=== PATIENT | male | born 1965 | race Caucasian/White ===

== ENCOUNTER 2019-05-15 09:32 | Inpatient (IN) | payer OTHER ==
[2019-05-15 10:16] VITALS: BMI 23.6
--- NOTE | 2019-05-15 11:02 | HP ---
CIWA Score Nausea/Vomitin Muscle Tremors: 2 Anxiety: 2 Agitation: 2 Paroxysmal Sweats: 2 Orientation: 0-Oriented Tacttile Disturbances: 2-Mild Itch/Numbness/Burn Auditory Disturbances: 1-Very Mild Visual Disturbances: 1-Very Mild Sensitivity Headache: 2-Mild CIWA-Ar Total Score: 16 - Admission Criteria OASAS Guidelines: Admission for Medically Managed Detox: Requires at least one of the followin. CIWA greater than 12 2. Seizures within the past 24 hours 3. Delirium tremens within the past 24 hours 4. Hallucinations within the past 24 hours 5. Acute intervention needed for co occurring medical disorder 6. Acute intervention needed for co occurring psychiatric disorder 7. Severe withdrawal that cannot be handled at a lower level of care (continued vomiting, continued diarrhea, abnormal vital signs) requiring intravenous medication and/or fluids 8. Patient presents the following: CIWA greater than 12 Admission Criteria Met: Admission criteria met Admission ROS S - [facility] Chief Complaint: I am here because I drink too much" Allergies/Adverse Reactions: Allergies Allergy/AdvReac Type Severity Reaction Status Date / Time No Known Allergies Allergy Verified 05/15/19 11:07 History of Present Illness: Patient is a 53 year old male who was sent here from [facility] [place] for alcohol intoxication. He reports long history of alcoholism, he reports previous blackouts and seizures related to intoxication although he does not recollect last episodes. Exam Limitations: No Limitations - Ebola screening Have you traveled outside of the country in the last 21 days: No (NN) Have you had contact with anyone from an Ebola affected area: No Have you been sick,other than usual withdrawal symptoms: No Do you have a fever: No - Review of Systems Constitutional: Chills, Loss of Appetite, Changes in sleep EENT: reports: Recent change in vision, Nose Congestion Respiratory: reports: Cough Cardiac: reports: Lightheadedness, Palpitations ( on and off) GI: reports: Nausea, Poor Appetite, Poor Fluid Intake : reports: No Symptoms Reported Musculoskeletal: reports: Back Pain, Joint Pain, Muscle Pain, Muscle Weakness Integumentary: reports: Sweating Neuro: reports: Headache, Numbness, Tremors Endocrine: reports: No Symptoms Reported Hematology: reports: No Symptoms Reported Psychiatric: reports: Anxious, Depressed Other Systems: Reviewed and Negative Patient History - Patient Medical History Hx Anemia: No Hx Asthma: No Hx Chronic Obstructive Pulmonary Disease (COPD): No Hx Cancer: No Hx Cardiac Disorders: No Hx Congestive Heart Failure: No Hx Hypertension: No Hx Hypercholesterolemia: No Hx Pacemaker: No HX Cerebrovascular Accident: No Hx Seizures: Yes Hx Dementia: No Hx Diabetes: No Hx Gastrointestinal Disorders: No Hx Liver Disease: No Hx Genitourinary Disorders: No Hx Sexually Transmitted Disorders: No Hx Renal Disease (ESRD): No Hx Thyroid Disease: No Hx Human Immunodeficiency Virus (HIV): No Hx Hepatitis C: No Hx Depression: Yes Hx Suicide Attempt: Yes (has thought of harming self in the past) Hx Bipolar Disorder: No Hx Schizophrenia: No - Patient Surgical History Past Surgical History: No - PPD History Previous Implant?: No Implanted On Prior [facility] Admission?: No PPD to be Administered?: Yes - Smoking Cessation Smoking history: Current every day smoker Have you smoked in the past 12 months: Yes Aproximately how many cigarettes per day: 20 Hx Chewing Tobacco Use: No Initiated information on smoking cessation: Yes 'Breaking Loose' booklet given: 05/15/19 - Substances abused Alcohol Substance route: Oral Frequency: 1-2 times per week Amount used: 1 6pack of 12 oz beers Age of first use: 14 Date of last use: 05/14/19 Admission Physical Exam [facility] - Vital Signs Vital Signs: Vital Signs - 24 hr 05/15/19 10:13 Temperature 98.0 F Pulse Rate 74 Respiratory 16 Rate Blood Pressure 130/80 - Physical General Appearance: Yes: No Apparent Distress HEENTM: Yes: Hearing grossly Normal, Normocephalic, Normal Voice Respiratory: Yes: Chest Non-Tender, Lungs Clear, Normal Breath Sounds, No Respiratory Distress, No Accessory Muscle Use Neck: Yes: No masses,lesions,Nodules, Supple Breast: Yes: Breast Exam Deferred Cardiology: Yes: Regular Rhythm, Regular Rate, S1, S2 Abdominal: Yes: Normal Bowel Sounds, Non Tender, Soft Genitourinary: Yes: Within Normal Limits Back: Yes: Normal Inspection Extremities: Yes: Tremors, Coldness 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 NML intact, Fully Oriented, Alert, Normal Mood/ Affect, Normal Response Integumentary: Yes: Clammy Lymphatic: Yes: Within Normal Limits - Diagnostic (1) Nicotine dependence Current Visit: Yes Status: Acute Qualifiers: Nicotine product type: cigarettes Substance use status: uncomplicated Qualified Code(s): F17.210 - Nicotine dependence, cigarettes, uncomplicated (2) Alcohol dependence, uncomplicated Current Visit: Yes Status: Acute (3) Depression Current Visit: Yes Status: Acute Qualifiers: Depression Type: major depressive disorder Active/Remission status: currently active (4) NEVIN (generalized anxiety disorder) Current Visit: Yes Status: Acute Cleared for Admission S - Detox or Rehab [facility] Level of Care: Medically Managed Detox Regimen/Protocol: Librium Claeared for Rehab Admission: No Breathalyzer - Breathalyzer Breathalyzer: 0 Urine Drug Screen - Test Device Lot number: [id number] Expiration date: 12/01/20 - Control Is test valid?: Yes - Results Drug screen NEGATIVE: Yes Inpatient Rehab Admission - Rehab Decision to Admit Inpatient rehab admission?: No
[2019-05-15] MEDS ORDERED: MAGNESIUM HYDROX 2400MG/30ML ORAL SUSPENSION 30 ML CUP PO PRN (11:07)
[2019-05-15] MEDS ORDERED: ACETAMINOPHEN 325 MG TABLET (FP) PO PRN ×2 (11:07)
[2019-05-15] MEDS ORDERED: MENTHOL/PHENOL 1 EACH UD MM PRN (11:07)
[2019-05-15] MEDS ORDERED: MAG HYDROX/AL HYDROX/SIMETH 30 ML UNIT-DOSE CUP PO PRN (11:07)
[2019-05-15] MEDS ORDERED: IBUPROFEN 400 MG TABLET (FP) PO PRN (11:07)
[2019-05-15] MEDS ORDERED: MAGNESIUM CITRATE 300 ML BOTTLE PO PRN (11:07)
[2019-05-15] MEDS ORDERED: BISMUTH SUBSALICYLATE 524 MG/30 ML UD PO PRN (11:07)
[2019-05-15] MEDS ORDERED: NICOTINE POLACRILEX 2 MG GUM BUC PRN (11:07)
[2019-05-15] MEDS ORDERED: METHOCARBAMOL 500 MG TABLET PO PRN (11:07)
[2019-05-15] MEDS ORDERED: hydrOXYzine PAMOATE 25 MG CAPSULE (FP) PO PRN (11:07)
[2019-05-15] MEDS ORDERED: chlordiazePOXIDE HCL 10 MG CAPSULE PO PRN (11:07)
[2019-05-15] MEDS: chlordiazePOXIDE HCL 25 MG CAPSULE PO SCH ×2 (12:37→22:12)
[2019-05-15] MEDS: NICOTINE 14 MG/24 HOURS TOPICAL PATCH TD SCH (12:37)
[2019-05-15] MEDS: MELATONIN 5 MG TABLETS PO PRN (22:12)
[2019-05-15] MEDS: THIAMINE HCL 100 MG TABLET (FP) PO SCH (22:12)
[2019-05-16] MEDS: chlordiazePOXIDE HCL 25 MG CAPSULE PO SCH ×3 (05:44→22:38)
[2019-05-16] MEDS: PRENATAL VITAMINS W/ FOLIC ACID TABLET (FP) PO SCH (09:42)
[2019-05-16] MEDS: NICOTINE 14 MG/24 HOURS TOPICAL PATCH TD SCH (09:44)
--- NOTE | 2019-05-16 11:09 | PN ---
S CIWA - CIWA Score Nausea/Vomitin Muscle Tremors: 3 Anxiety: 3 Agitation: 0-Normal Activity Paroxysmal Sweats: 2 Orientation: 0-Oriented Tacttile Disturbances: 1-Very Mild Itch/Numbness Auditory Disturbances: 0-None Visual Disturbances: 1-Very Mild Sensitivity Headache: 2-Mild CIWA-Ar Total Score: 14 BHS Progress Note (SOAP) Subjective: 53 years old male admitted on 05/15/19 for alcohol withdrawal sx management treating with librium detox regimen ate breakfast feeling tired resting on bed prefers to sleep in bed today limited conversation with staff Objective: 05/16/19 11:12 Vital Signs Temperature 97.2 F L 05/16/19 09:21 Pulse Rate 77 05/16/19 09:21 Respiratory Rate 16 05/16/19 09:21 Blood Pressure 102/70 05/16/19 09:21 O2 Sat by Pulse Oximetry (%) 05/16/19 11:12 lab pending Assessment: 05/16/19 11:14 alcohol withdrawal Plan: librium regimen
[2019-05-16 12:10] LABS: HEMATOCRIT 43.2 % (35.4-49); HEMOGLOBIN 14.7 GM/dL (11.7-16.9); MCH 32.8 pg (25.7-33.7); MEAN CELL VOLUME 96.4 fl (80-96); MEAN PLT VOLUME 8.7 fl (7.5-11.1); PLATELET COUNT 211 K/MM3 (134-434); RBC 4.48 M/mm3 (4.00-5.60); RDW 13.8 % (11.9-15.9); WHITE BLOOD COUNT 7.7 K/mm3 (4.0-10.0)
[2019-05-16 12:28] LABS: ALBUMIN 3.3 g/dl (3.4-5.0); BILIRUBIN,TOTAL 0.5 mg/dL (0.2-1); CALCIUM 8.7 mg/dL (8.5-10.1); CREATININE 0.8 mg/dL (0.55-1.3); POTASSIUM 3.9 mmol/L (3.5-5.1)
--- NOTE | 2019-05-16 15:43 | CONSULT ---
[facility] Psychiatric Consult - Data Date of interview: 05/16/19 Admission source: [facility] Identifying data: First visit to [facility] and admission to [address] [place] [address] for this [place]born male self-referred for detoxification. MELODIE issues : alcohol, nicotine. Patient is , a father of three, domiciled and currently employed. Substance Abuse History: Discussed with the patient. Details in current [facility] report as follows :Smoking history: Current every day smoker. Have you smoked in the past 12 months: Yes. Aproximately how many cigarettes per day: 20. Hx Chewing Tobacco Use: No. Initiated information on smoking cessation: Yes. ' Breaking Loose' booklet given: 05/15/19. - Substances abused. Alcohol. Substance route: Oral. Frequency: 1-2 times per week. Amount used: 1 6pack of 12 oz beers. Age of first use: 14. Date of last use: 05/14/19 Medical History: Patient endorses good general health. Psychiatric History: Patient denies history of psychiatric hospitalizations, OPD care or suicide attempts. Physical/Sexual Abuse/Trauma History: Stressors : marital discord, alcohol addiction and quarrels with siblings over inheritance in [place] ([facility]). Additional Comment: Negative toxicology. Mental Status Exam - Mental Status Exam Alert and Oriented to: Time, Place, Person Cognitive Function: Good Patient Appearance: Well Groomed Mood: Nervous, Withdrawn Affect: Mood Congruent, Constricted Patient Behavior: Fatigued, Appropriate, Cooperative Speech Pattern: Clear (communicates in tunisian) Voice Loudness: Normal Thought Process: Intact, Goal Oriented Thought Disorder: Not Present Hallucinations: Denies Suicidal Ideation: Denies Homicidal Ideation: Denies Insight/Judgement: Fair Sleep: Well Appetite: Good Gait/Station: Normal Psychiatric Findings - Problem List ([place] 1, 2,3) (1) Alcohol dependence, uncomplicated Current Visit: Yes Status: Chronic (2) Nicotine dependence Current Visit: Yes Status: Chronic Qualifiers: Nicotine product type: cigarettes Substance use status: uncomplicated Qualified Code(s): F17.210 - Nicotine dependence, cigarettes, uncomplicated (3) Adjustment disorder Current Visit: Yes Status: Suspected - Initial Treatment Plan Initial Treatment Plan: Psychoeducation. Sleep hygiene. Detoxification. AA meetings. MAT services explained to patient : he declines (he reports that he relapsed after 20 years of sobriety; blames his relapse on his frequent quarrels with his whom he suspects of having confiscated his green card to prevent him from traveling to [place] as he previously planned. Support. No justification for psychotropic medications except for detoxification protocol. Observation.
[2019-05-16] MEDS: THIAMINE HCL 100 MG TABLET (FP) PO SCH (22:38)
[2019-05-17] MEDS: chlordiazePOXIDE 5 MG CAPSULE PO SCH ×3 (05:13→22:31)
[2019-05-17] MEDS: PRENATAL VITAMINS W/ FOLIC ACID TABLET (FP) PO SCH (09:49)
[2019-05-17] MEDS: NICOTINE 14 MG/24 HOURS TOPICAL PATCH TD SCH (09:50)
--- NOTE | 2019-05-17 12:32 | PN ---
[facility] CIWA - CIWA Score Nausea/Vomitin-Mild Nausea/No Vomiting Muscle Tremors: 3 Anxiety: 4-Mod. Anxious/Guarded Agitation: 1-Slight > Activity Paroxysmal Sweats: 2 Orientation: 0-Oriented Tacttile Disturbances: 0-None Auditory Disturbances: 0-None Visual Disturbances: 0-None Headache: 0-None Present CIWA-Ar Total Score: 11 S Progress Note (SOAP) Subjective: 53 years old male admitted on 05/15/19 for alcohol withdrawal sx management treating with librium detox regimen feeling ok today ate breakfast resting in bed encourage to attend behavior and psychosocial therapies while in detox Objective: 05/17/19 12:32 Vital Signs Temperature 97.8 F 05/17/19 09:08 Pulse Rate 83 05/17/19 09:08 Respiratory Rate 16 05/17/19 09:08 Blood Pressure 98/62 05/17/19 09:08 O2 Sat by Pulse Oximetry (%) Laboratory Last Values WBC 7.7 K/mm3 (4.0-10.0) 05/16/19 08:17 RBC 4.48 M/mm3 (4.00-5.60) 05/16/19 08:17 Hgb 14.7 GM/dL (11.7-16.9) 05/16/19 08:17 Hct 43.2 % (35.4-49) 05/16/19 08:17 MCV 96.4 fl (80-96) H 05/16/19 08:17 MCH 32.8 pg (25.7-33.7) 05/16/19 08:17 MCHC 34.0 g/dl (32.0-35.9) 05/16/19 08:17 RDW 13.8 % (11.9-15.9) 05/16/19 08:17 Plt Count 211 K/MM3 (134-434) 05/16/19 08:17 MPV 8.7 fl (7.5-11.1) 05/16/19 08:17 Sodium 140 mmol/L (136-145) 05/16/19 08:17 Potassium 3.9 mmol/L (3.5-5.1) 05/16/19 08:17 Chloride 109 mmol/L (98-107) H 05/16/19 08:17 Carbon Dioxide 26 mmol/L (21-32) 05/16/19 08:17 Anion Gap 5 MMOL/L (8-16) L 05/16/19 08:17 BUN 20.0 mg/dL (7-18) H 05/16/19 08:17 Creatinine 0.8 mg/dL (0.55-1.3) 05/16/19 08:17 Est GFR (CKD-EPI)AfAm 117.38 05/16/19 08:17 Est GFR (CKD-EPI)NonAf 101.27 05/16/19 08:17 Random Glucose 166 mg/dL (74-106) H 05/16/19 08:17 Calcium 8.7 mg/dL (8.5-10.1) 05/16/19 08:17 Total Bilirubin 0.5 mg/dL (0.2-1) 05/16/19 08:17 AST 12 U/L (15-37) L 05/16/19 08:17 ALT 18 U/L (13-61) 05/16/19 08:17 Alkaline Phosphatase 81 U/L (45-117) 05/16/19 08:17 Total Protein 6.0 g/dl (6.4-8.2) L 05/16/19 08:17 Albumin 3.3 g/dl (3.4-5.0) L 05/16/19 08:17 RPR Titer Nonreactive (NONREACTIVE) 05/16/19 08:17 lab noted Assessment: 05/17/19 12:33 alcohol withdrawal Plan: librium regimen
[2019-05-17] MEDS: MELATONIN 5 MG TABLETS PO PRN (22:29)
[2019-05-17] MEDS: THIAMINE HCL 100 MG TABLET (FP) PO SCH (22:29)
[2019-05-18] MEDS ORDERED: chlordiazePOXIDE HCL 10 MG CAPSULE PO PRN
[2019-05-18] MEDS ORDERED: chlordiazePOXIDE HCL 10 MG CAPSULE PO SCH (05:00)
--- NOTE | 2019-05-18 09:05 | DS ---
[facility] Detox Discharge Summary Admission Date: 05/15/19 Discharge Date: 05/18/19 - History Present History: Alcohol Dependence - Physical Exam Results Vital Signs: Vital Signs Temperature 97.1 F L 05/18/19 07:35 Pulse Rate 73 05/18/19 07:35 Respiratory Rate 18 05/18/19 07:35 Blood Pressure 98/66 05/18/19 07:35 O2 Sat by Pulse Oximetry (%) - Treatment Hospital Course: Detox Protocol Followed, Detoxed Safely, Responded well, Discharged Condition Good - Medication Discharge Medications: Ambulatory Orders NK [No Known Home Medication] 05/15/19 - Diagnosis (1) Depression Current Visit: Yes Status: Chronic Qualifiers: Depression Type: major depressive disorder Active/Remission status: currently active (2) NEVIN (generalized anxiety disorder) Current Visit: Yes Status: Chronic (3) Alcohol dependence, uncomplicated Current Visit: Yes Status: Chronic (4) Nicotine dependence Current Visit: Yes Status: Chronic Qualifiers: Nicotine product type: cigarettes Substance use status: uncomplicated Qualified Code(s): F17.210 - Nicotine dependence, cigarettes, uncomplicated - AMA Did Patient Leave Against Medical Advice: No (Pt requested early d/c because of appt. scheduled for toda)
[2019-05-18 09:20] VITALS: BP 105/69; PULSE 74; TEMP 99
[2019-05-18] MEDS: NICOTINE 14 MG/24 HOURS TOPICAL PATCH TD SCH (09:45)
[2019-05-18] MEDS: PRENATAL VITAMINS W/ FOLIC ACID TABLET (FP) PO SCH (09:45)
[2019-05-19] MEDS ORDERED: chlordiazePOXIDE HCL 10 MG CAPSULE PO ONE (05:00)
== END 2019-05-18 09:49 | disposition home or self-care (01) | DRG 775 ==
LOC: YASAS 09:32 → Y3N 11:45
PROVIDERS: ADMIT Allergy & Immunology; ATTEND Allergy & Immunology
PROC: HZ2ZZZZ Detoxification Services for Substance Abuse Treatment (ICD-10-PCS; principal; 2019-05-15)
DX: F10.230 Alcohol dependence with withdrawal, uncomplicated (principal); F17.210 Nicotine dependence, cigarettes, uncomplicated; F41.1 Generalized anxiety disorder; F43.20 Adjustment disorder, unspecified; F32.9 Major depressive disorder, single episode, unspecified; Z86.69 Personal history of other diseases of the nervous system and sense organs; Z91.5 Personal history of self-harm
CPT/HCPCS: 36415; 80053; 85027; 86593